=== PATIENT | female | born 1955 ===

== ENCOUNTER 2024-12-14 15:38 | Outpatient (CLI) | payer MEDICARE ==
--- NOTE | 2024-12-14 16:43 | RADIOLOGY REPORT ---
EXAM: MR MRI LOWER EXTREMITY LEFT knee INDICATION: PAIN IN LEFT KNEE TECHNIQUE: Multiplanar and multisequence MR imaging of the left ankle was performed in the absence of gadolinium contrast. COMPARISON: None FINDINGS: There is a tear in the root of the medial meniscus best seen on coronal image 12 and sagittal image 1 6. There is slight medial subluxation of the medial meniscus The lateral meniscus is intact The cruciate ligaments are intact Collateral ligaments are intact Quadriceps and patellar tendons intact. Trace joint effusion. Hyaline cartilage surfaces covering the patellofemoral joint are thinned along the lateral facet IMPRESSION: 1. There is a tear in the posterior root of the medial meniscus resulting in mild medial subluxation of the medial meniscus.
== END 2024-12-14 23:59 | disposition home or self-care (01) ==
LOC: MRI02 15:38
PROVIDERS: ATTEND Family Medicine Sports Medicine
DX: S83.242A Other tear of medial meniscus, current injury, left knee, initial encounter (principal); M17.12 Unilateral primary osteoarthritis, left knee; M25.562 Pain in left knee; M11.262 Other chondrocalcinosis, left knee; X58.XXXA Exposure to other specified factors, initial encounter; Y93.89 Activity, other specified; Y92.89 Other specified places as the place of occurrence of the external cause; Y99.8 Other external cause status
CPT/HCPCS: 73721